=== PATIENT | male | born 1960 | race Caucasian/White ===

== ENCOUNTER → 2017-01-20 | Outpatient (CLI) | payer OTHER ==
[~2017-01-20] MED LIST: DIOVAN HCT 1601 EACH PO
== END ==
LOC: CAT 07:40
DX: I72.3 Aneurysm of iliac artery (principal); I77.819 Aortic ectasia, unspecified site

== ENCOUNTER 2017-02-14 05:59 | Inpatient (IN) | payer OTHER ==
[2017-02-10 12:08] LABS: URINE BILIRUBIN NEGATIVE (Negative); URINE BLOOD 1+ (Negative); URINE COLOR YELLOW; URINE GLUCOSE-RANDOM* NEGATIVE (Negative); URINE KETONES NEGATIVE (Negative); URINE LEUKOCYTES-REFLEX 1+ (Negative); URINE PROTEIN (DIPSTICK) NEGATIVE (Negative); URINE SPECIFIC GRAVITY 1.015 (1.003-1.035)
[2017-02-10 12:10] LABS: HEMATOCRIT 52.5 % (42.0-52.0); HEMOGLOBIN 18.1 gm/dL (14.0-18.0); MCH 32.2 pg (26.0-34.0); MCHC 34.6 g/dL (28.0-37.0); MCV 93.1 fL (80.0-100.0); RBC 5.64 mil/uL (4.50-6.00); RDW 13.1 % (10.5-14.5); WBC 6.8 thou/uL (4.0-11.0)
[2017-02-10 12:25] LABS: INR 1.1
[2017-02-10 12:28] LABS: CASTS None Seen /LPF (None Seen); CRYSTALS None Seen /LPF (None Seen); SQUAMOUS None Seen /LPF (0-3); URINE RBC None Seen /HPF (0-2); URINE WBC-REFLEX 0-5 Rare /HPF (0-5)
[2017-02-10 12:29] LABS: ALBUMIN 4.3 g/dL (3.4-5.0); CALCIUM 9.2 mg/dL (8.5-10.1); CREATININE 1.1 mg/dL (0.7-1.3); POTASSIUM 3.8 mmol/L (3.5-5.1); TOTAL BILIRUBIN 1.4 mg/dL (<0.1-1.0); TOTAL PROTEIN 7.8 g/dL (6.4-8.2)
[~2017-02-14] VITALS: Ht 193 cm; Wt 109.8 kg
--- NOTE | ~2017-02-14 | O ---
[facility] [place] [address] OPERATIVE REPORT Name: EMILY SANTOS Room #: 242-P [facility] M.R.#: [id number] Admission: 02/14/17 Attend Phys: Caio Evans MD Discharge: 02/15/17 Date of : 60 Report #: [id number] THIS REPORT FOR: //name// CC: Caio Hector DATE OF SERVICE: 02/14/2017 PREOPERATIVE DIAGNOSES: 1. 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 POSTOPERATIVE DIAGNOSES: 1. 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 OPERATION: Stent graft implant for abdominal aorta and iliac arteries and appropriate arteriography. SURGEON: Caio Evans MD and Richard Jones M.D. SHOP MECHANIC HELPER: Lonny. ANESTHESIA: General. INDICATIONS: The patient is a 56-year-old with an aneurysmal left common iliac artery. This is a complex aneurysm with the dissection plan and cul-de-sac filled with thrombus. The right iliac artery is ectatic, but not frankly aneurysmal. The abdominal aorta is normal. The patient has a history of abdominal aortic aneurysm rupture in father, this was a fatal event. FINDINGS AND TECHNIQUE: After general anesthesia was established, incisions were made in both groins to expose the common femoral arteries. 10,000 units of heparin were given on each side and 6-Omani introducers were placed and ultimately, Amplatz wires were placed up into the aorta. We attempted to place an iliac branch device in the left side. Over the stiff wires, femoral cut downs were done on each side and 16-Omani introducers were placed. A second wire was placed through the left-sided introducer and this was captured with a snare, so that the wire was extended out of the introducer on each side. Over the stiff wire on the left side, the iliac branch device was passed. This [facility] [address] [place] [address] OPERATIVE REPORT Name: SANTOSTANJAMine Dill Room #: 242-P [facility] M.R.#: [id number] Admission: 02/14/17 Attend Phys: Caio Evans MD Discharge: 02/15/17 Date of : 60 Report #: [id number] was opened in an appropriate position in the common iliac artery. The stiff wire around the right was removed and over the Storq wire that went across the bifurcation, a 16-Omani catheter was introduced down deeply into the iliac branch device as required. Through this 16-Omani sheath, we tried to cannulate the left hypogastric artery. Multiple attempts were made at this with varying angles and projections. Ultimately, we determined from our lack of success and review of the CT scan that this would be impossible with the anatomy given to us by the patient; therefore, we converted our approach. The iliac branch device was pulled a bit more peripherally and proximally, we entered the dissection plan that led to the hypogastric artery. Multiple coils were placed to thrombose the hypogastric artery. When this was complete, then we completed the stent graft procedure. First, we deployed the iliac branch device completely and then through the right side, we placed the ipsilateral aortic device. This was landed just below the renal arteries. Position in the renal arteries was ascertained by placing a visceral catheter in the lowest left renal artery. The device was deployed. The contralateral gate was cannulated and then, our extension was added to the contralateral gate into the iliac branch device. The main component was a 26 x 14 x 12 cm device. The iliac branch device was a 23 x 14 x 10. The extension device on the left side into the contralateral gate was a 16 x 11.5 and then added on to this was a 14 x 10 cm graft. Good position into the external iliac artery with appropriate overlaps was obtained to complete this left side. Through the right side, a 23 x 10 cm graft was placed after we identified the right hypogastric artery with a sheath arteriogram. In total, 5 pieces had been placed and then initially, a 14 mm balloon was used to seat the device in the gate through the left side into the contralateral gate. This 14 mm balloon was used to dilate all of the pieces on the left side and then, a G50 balloon was used to seat the aortic component below the renal arteries and down through the components on the right side. When all of the components had been fully dilated including interposition of the G50 balloon on the left side for multiple dilatations, then a final arteriogram was taken. This showed no evidence of endoleak, good position proximally and distally and complete isolation of the large iliac aneurysm with no flow into the hypogastric artery. Satisfied that we had isolated the left iliac artery aneurysm and had no evidence of endoleak, dilators were replaced into the sheaths and dilators were removed and then guidewires were removed. Then, interrupted Prolene was used to repair both femoral artery cut downs. Good distal pulses were ascertained at the end of the case, 25 mg of protamine was given. Hemostasis was ascertained [facility] [address] [place] [address] OPERATIVE REPORT Name: EMILY SANTOS Room #: 242-P [facility] M.R.#: [id number] Admission: 02/14/17 Attend Phys: Caio Evans MD Discharge: 02/15/17 Date of : 60 Report #: [id number] and the wounds were closed in layers. The patient was taken to the intensive care unit in satisfactory condition having tolerated the procedure well. All counts reported as correct. <ELECTRONICALLY SIGNED> By: Caio Evans MD 02/16/17 0836 [id number] 1843 Caio Evans MD /nt
[~2017-02-14 05:59] MED LIST changes: +AVAPRO300 MG PO; +AZOR 5-40 MG T1 EACH PO; +IBUPROFEN 200200 M1 PO; +LIPITOR 20 MG T20 M1 PO; +PRILOSEC 20 MG20 MG PO; +VIAGRA50 MG PO
[2017-02-14 07:00] VITALS: BP 128/83
[2017-02-14 19:00] VITALS: BP 115/66
[2017-02-14 21:54] VITALS: BP 115/68
[2017-02-14 22:57] VITALS: BP 110/57
[2017-02-15] VITALS (16 sets, daily range): BP systolic 96–123; BP diastolic 62–77
[2017-02-15 04:23] LABS: HEMATOCRIT 45.9 % (42.0-52.0); HEMOGLOBIN 15.9 gm/dL (14.0-18.0); MCH 32.3 pg (26.0-34.0); MCHC 34.6 g/dL (28.0-37.0); MCV 93.4 fL (80.0-100.0); RBC 4.91 mil/uL (4.50-6.00); RDW 13.4 % (10.5-14.5); WBC 11.3 thou/uL (4.0-11.0)
[2017-02-15 04:29] LABS: CALCIUM 8.5 mg/dL (8.5-10.1); CREATININE 1.1 mg/dL (0.7-1.3); POTASSIUM 3.7 mmol/L (3.5-5.1)
[2017-02-15] MEDS ORDERED: FLOMAX0.4 MG PO (14:42)
== END 2017-02-15 15:45 | disposition home or self-care (01) | DRG 272 ==
LOC: ICU 05:59 → TBA 06:01 → ICU 06:01
PROVIDERS: Physician Assistant; Surgery Vascular Surgery
DX: I72.3 Aneurysm of iliac artery (principal); K21.9 Gastro-esophageal reflux disease without esophagitis; E66.9 Obesity, unspecified; E78.5 Hyperlipidemia, unspecified; I10 Essential (primary) hypertension; Z88.8 Allergy status to other drugs, medicaments and biological substances; N40.0 Benign prostatic hyperplasia without lower urinary tract symptoms
CPT/HCPCS: 10078; 47375; 48888; 50010; 50101; 50386; 50455; 51751; 54118; 55022; 56524; 56526; 56531; 56668; 56760; 57093; 62110; 62900; 65020; 65040; 65043; 70005

== ENCOUNTER → 2017-03-18 | Outpatient (CLI) | payer OTHER ==
[~2017-03-18] MED LIST changes: +FLOMAX0.4 MG PO
== END ==
LOC: CAT 08:50
PROVIDERS: Nuclear Medicine Nuclear Cardiology
DX: I72.3 Aneurysm of iliac artery (principal); N28.1 Cyst of kidney, acquired; N40.0 Benign prostatic hyperplasia without lower urinary tract symptoms

== ENCOUNTER → 2017-12-16 | Outpatient (CLI) | payer OTHER ==
[2017-12-16 09:14] LABS: CREATININE 1.1 mg/dL (0.7-1.3)
== END ==
LOC: CAT 05:59
PROVIDERS: Nuclear Medicine Nuclear Cardiology
DX: Z01.812 Encounter for preprocedural laboratory examination (principal); N28.1 Cyst of kidney, acquired; N40.0 Benign prostatic hyperplasia without lower urinary tract symptoms; I71.4 Abdominal aortic aneurysm, without rupture; Z95.828 Presence of other vascular implants and grafts

== ENCOUNTER 2018-05-26 05:24 | Day surgery (SDC) | payer OTHER ==
[~2018-05-26] VITALS: Ht 193 cm; Wt 115.7 kg
--- NOTE | ~2018-05-26 | O ---
[facility] [place] [address] OPERATIVE REPORT Name: EMILY SANTOS Room #: DEP [facility]..#: [id number] Admission: 05/26/18 Attend Phys: Americo Ny MD Discharge: 05/26/18 Date of : 60 Report #: [id number] THIS REPORT FOR: //name// CC: Amercio Hector DATE OF SERVICE: 05/26/2018 PREOPERATIVE DIAGNOSES: 1. Symptomatic umbilical hernia. 2. Painful left chest mass/lipoma. 3. Painful left abdominal mass/lipoma. POSTOPERATIVE DIAGNOSES: 1. Symptomatic umbilical hernia. 2. Painful left chest mass/lipoma. 3. Painful left abdominal mass/lipoma. PROCEDURES PERFORMED: 1. Repair of umbilical hernia with medium Ventralex patch. 2. Excision of left abdominal mass/lipoma. 3. Excision of left chest mass/lipoma. ANESTHESIA: General. SURGEON: Americo Ny MD COMPLICATIONS: None. BLOOD LOSS: 10 mL. PROCEDURE NOTE: With the patient under anesthesia, the abdomen and the left lower chest is prepped, draped in sterile fashion. Timeout was performed. A 0.25% Marcaine was used to anesthetize the skin. A 3 cm incision was made infraumbilically. The skin was ellipsed off, was lifted off the hernia sac and properitoneal fat. This contained likely more properitoneal fat than sac. This is a fairly large sized lobular fat that has herniated through. This was about 3 x 5 cm. This was free from the fascia. This was reduced back into the properitoneal space. The fascia defect was cleaned off. The fascia defect is about 2 cm. Properitoneal space was dissected with blunt dissection and cautery. Properitoneal space was opened up. Once this was opened up, there was no bleeding identified. A medium Ventralex patch, which was moistened with saline, was placed in the properitoneal space. A strap was used to look at the mesh and the mesh was opened up well. No folding. The fascia defect was then closed with 0 Prolene horizontal mattress fashion x 2. This incorporated the strap. The strap was then trimmed at the fascial level. Skin of the umbilicus [facility] [address] [place] [address] OPERATIVE REPORT Name: EMILY SANTOS Room #: DEP [facility].#: [id number] Admission: 05/26/18 Attend Phys: Americo Ny MD Discharge: 05/26/18 Date of : 60 Report #: [id number] was sewn down to the fascia level with 4-0 PDS, 4-0 PDS was used to close the subcutaneous tissue and the skin was then closed with 5-0 PDS in running fashion. Steri-Strips, 4 x 4, OpSite were used for dressing. The left abdominal mass was then also dissected free. This was isolated without difficulty. The skin was anesthetized with 0.25% Marcaine. An incision about 3 cm was made over this. There is subcutaneous fat that is very easy to identify and isolate, came out complete. This was then closed with 5-0 PDS in running fashion. The chest lesion was difficult to palpate. The patient did point it out to me and I put a marking pen over this area and I do feel some nodularity here. It is not as distinct as the abdominal one. After dissecting through the skin, there were several firm fatty nodules. This area was dissected out well to ensure complete removal. I do not feel anything in the muscle or intercostal area. The skin was then closed with 5-0 PDS. Steri-Strips, 4 x 4, OpSite were used for dressing. The patient tolerated the procedure well. By: 1715 1740 Americo Ny MD /nt
--- NOTE | ~2018-05-26 | PATH ---
[facility] [address] [place] [address] PATHOLOGY RPT PROCEDURE Name: FLOYD SANTOS Room #: DEP [facility] M.R.#: [id number] Admission: 05/26/18 Date of : 60 Discharge: 05/26/18 Report #: [id number] Path Case #: [id number] [facility] Accession Number: [id number] . 01 Material submitted: . LEFT CHEST LIPOMA . 01 Clinician provided ICD-10: K42.9 R19.00 . 01 Clinical history: . Umbilical hernia; abdominal mass, multiple . 02 Diagnosis: Mature adipose tissue, left chest lipoma, excision: - Compatible with an angiolipoma. - Negative for malignancy. (IUV:pit 05/29/2018) QTP/05/29/2018 . 02 Electronically signed: . Carolina Sepulveda MD, Pathologist NPI- [id number] . 01 Gross description: . The specimen is received in formalin, labeled "Floyd Santos, left chest lipoma". Received is an encapsulated segment of bright yellow lobulated tissue measuring 4.7 x 2.5 x 2.2 cm in greatest dimensions. Sectioning reveals bright yellow, lobulated cut surfaces throughout with no grossly distinct nodules or lesions. The specimen is submitted representatively in cassette A1. (CAA; 05/26/2018) QAC/QAC . 02 Pathologist provided ICD-10: D17.79 . 02 CPT . 458918 Specimen Comment: A courtesy copy of this report has been sent to Specimen Comment: [phone], . Specimen Comment: Report sent to and Performed at: [address] [id number] MD Jin Murillo MD Phone: [phone] [address] [address] PATHOLOGY RPT PROCEDURE Name: FLOYD SANTOS Room #: DEP [facility]#: [id number] Admission: 05/26/18 Date of : 60 Discharge: 05/26/18 Report #: [id number] Path Case #: [id number] Performed at: [address] [id number] MD Carolina Sepulveda MD Phone: [phone]
[~2018-05-26 05:24] MED LIST changes: +AMLODIPINE-OLM1 EACH PO; +ASPIR 8181 MG PO; +MULTIVITAMINS1 EAC7 PO
[2018-05-26 10:36] VITALS: BP 153/86
[2018-05-26] MEDS ORDERED: NORCO 5-325 TA1 EACH PO (13:06)
[2018-05-26 13:16] VITALS: BP 153/86
== END 2018-05-26 14:10 | disposition home or self-care (01) ==
LOC: OR 05:24 → TBA 05:25 → OR 13:10
DX: K42.9 Umbilical hernia without obstruction or gangrene (principal); D17.1 Benign lipomatous neoplasm of skin and subcutaneous tissue of trunk; I10 Essential (primary) hypertension; E78.5 Hyperlipidemia, unspecified; K21.9 Gastro-esophageal reflux disease without esophagitis; Z98.890 Other specified postprocedural states; Z79.899 Other long term (current) drug therapy; Z87.19 Personal history of other diseases of the digestive system; Z79.82 Long term (current) use of aspirin; Z88.8 Allergy status to other drugs, medicaments and biological substances
CPT/HCPCS: 50010; 50101; 50130; 50386; 50403; 56524; 56525; 62110; 62900; 70005

== ENCOUNTER → 2021-04-24 | Outpatient (CLI) | payer OTHER ==
[~2021-04-24] MED LIST changes: +NORCO 5-325 TA1 EACH PO
== END ==
LOC: CAT 15:37
PROVIDERS: ATTEND Internal Medicine Cardiovascular Disease
DX: Z13.6 Encounter for screening for cardiovascular disorders (principal); I25.10 Atherosclerotic heart disease of native coronary artery without angina pectoris; E78.00 Pure hypercholesterolemia, unspecified